=== PATIENT | male | born 1975 | race Caucasian/White ===

== ENCOUNTER 2020-12-16 20:16 | Inpatient (IN) ==
--- NOTE | 2020-12-16 21:31 | DR.FEVERAD ---
HPI Time seen Time Seen by Provider: 12/16/20 20:56 PCP Primary Care Physician: DR.GREG CALLEJAS Complaints/Symptoms Chief Complaint Doctor Comments: 45 y/o male ill over the past week with flu- like symptoms. Here with his brother with similar problems. Having fever, chills, aches, decreased taste, N/V. Cough is minimally productive, clear phlegm. Having dyspnea. + exposed to covid. Did not receive a vaccine. Chief Complaint:: PT HAS HAD COUGH, LOSS OF TASTE, FEVER, BODY ACHES, LOW BACK PAIN, FOR APPROX 1 WEEK Self Treatment fo Chief Complaint: TYLENOL AT APPROX 3:30 COVID-19 Coronavirus risk:travel/contact w/high risk person: Yes Has patient experienced Coronavirus symptoms: Yes Coronavirus symptoms experienced: Fever, Coughing and Shortness of Breath Nurses notes reviewed Nurses Notes Review: Yes Source History Provided: Patient Mode of Arrival Mode of Arrival: Ambulatory Timing Onset of Chief Complaint: 12/09/20 Came on: Gradually Duration Duration: Since Onset Severity Fever Severity/Quality: greater than 102 F Context Symptoms: Fever, Chills, Cough and SOB Modifying factors Modifying factors: Nothing PMH PMH Past Medical History: No Past Surgical History: Yes Surgical History: Appendectomy Family History History of Family Medical Conditions: No Social History Does patient currently use any type of tobacco product: No Have you used tobacco products in the last 12 months: No Type of Tobacco Use: None Does any household member use tobacco: No Do you use any recreational Drugs:: No Lives With: Family Lives Where: Home Infectious screening In the last 2 months have you had wt loss of >10#?: NO Have you had fever, night sweats or hemotysis?: No Have you traveled outside the country in the last 6 months?: No Isolation: Standard ROS Review of Systems Constitutional: Chills, Fever, Malaise, Weakness and Loss of Appetite Eyes: No Symptoms Reported ENTM: No Symptoms Reported Respiratoy: Non-Productive Cough and Short of Breath Cardiovascular: No Symptoms Reported Gastrointestinal/Abdominal: Nausea and Vomiting Genitourinary: No Symptoms Reported Neurological: Weakness Musculoskeletal: Muscle Pain Integumentary: No Symptoms Reported Hematologic/Lymphatic: No Symptoms Reported Endocrine: No Symptoms Reported Psychiatric: No Symptoms Reported All Other Systems: Reviewed and Negative PE Vital Signs Vitals: Temperature 101.2 F Pulse Rate 120 Respiratory Rate 22 Blood Pressure 121/82 O2 Sat by Pulse Oximetry 94 General Limitations: No Limitations General Appearance: Alert and In No Apparent Distress Head Head Exam: Normal Inspection Eyes Eye exam: Normal Appearance ENT ENT Exam: Normal Exam TM/Canal Exam: Bilateral: Normal Nose Exam: Normal Nose Exam Throat Exam: Normal Inspection Neck Neck Exam: Normal Inspection and Full ROM; negative Meningismus Respiratory Respiratory Exam: Normal Lung Sounds Bilat; negative Respiratory Distress Respiratory Exam: Bilateral: Clear to Auscultation Cardiovascular Cardiovascular Exam: Regular Rate, Normal Rhythm and Normal Heart Sounds Abdominal Exam Abdominal Exam: Normal Inspection and Normal Bowel Sounds; negative Tenderness Extremities Extremities Exam: Normal Inspection and Full ROM; negative Edema Back Back Exam: Normal Inspection and Full ROM Neurologic Neurological Exam: Alert, Oriented X3 and CN II-XII Intact; negative Motor Sensory Deficit Psychiatric Psychiatric Exam: Normal Affect Skin Skin Exam: Warm MDM Differential Diagnosis Differential Diagnosis: Influenza, Pneumonia and Viral syndrome (covid infection) COURSE Treatment Treatment: 45 y/o male ill for the past 2 weeks. Clinically with covid, everyone at work has it, here with brother with same symptoms. W/u initiated. CXR with right sided infiltrate, Covid is +. ABG shows pO2 at 62 on RA, 93% sat. Put on O2. Given IV fluids, IV decadron. Will admit for O2 therapy. ROR Labs Reviewed Laboratory Results Reviewed?: Yes Result Diagrams: 12/16/20 22:24 12/16/20 22:24 Laboratory: WBC 6.8 X10^3/uL (3.6-10.0) 12/16/20 22:24 RBC 5.14 X10^6/uL (4.7-6.0) 12/16/20 22:24 Hgb 14.9 g/dL (13.5-18.0) 12/16/20 22:24 Hct 43.0 % (42.0-54.0) 12/16/20 22:24 MCV 83.7 fL (80.0-100.0) 12/16/20 22:24 MCH 29.0 pg (27.0-34.0) 12/16/20 22:24 MCHC 34.6 g/dL (33.0-35.0) 12/16/20 22:24 RDW 14.0 % (11.6-16.5) 12/16/20 22:24 Plt Count 173 X10^3/uL (150.0-450.0) 12/16/20 22:24 MPV 7.9 fL (7.4-11.0) 12/16/20 22:24 Neut % (Auto) 73.7 % (42.0-75.0) 12/16/20 22:24 Lymph % (Auto) 20.6 % (21.0-51.0) L 12/16/20 22:24 Park % (Auto) 5.3 % (0.0-13.0) 12/16/20 22:24 Eos % (Auto) 0.0 % (0.9-2.9) L 12/16/20 22:24 Baso % (Auto) 0.4 % (0.2-1.0) 12/16/20 22:24 Neut # (Auto) 5.0 x10^3/uL (2.2-4.8) H 12/16/20 22:24 Lymph # (Auto) 1.4 X10^3/uL (1.3-2.9) 12/16/20 22:24 Park # (Auto) 0.4 x10^3/uL (0.3-0.8) 12/16/20 22:24 Eos # (Auto) 0.0 x10^3/uL (0.0-0.2) 12/16/20 22:24 Baso # (Auto) 0.0 X10^3/uL (0.0-0.1) 12/16/20 22:24 Absolute Nucleated RBC 0.1 /100WBC 12/16/20 22:24 Sample Site Lra 12/16/20 22:06 ABG pH 7.470 (7.35-7.45) H 12/16/20 22:06 ABG pCO2 32.0 mmHg (35.0-45.0) L 12/16/20 22:06 ABG pO2 62.0 mmHg (80.0-100.0) L 12/16/20 22:06 ABG HCO3 23.3 mmol/L (22-26) 12/16/20 22:06 ABG O2 Saturation 93.0 % (90-100) 12/16/20 22:06 ABG Base Excess 0.2 mmol/L (-2.0-2.0) 12/16/20 22:06 Keith Test Pos 12/16/20 22:06 A-a Gradient 48.0 mmHg 12/16/20 22:06 FiO2 21.0 12/16/20 22:06 Blood Gas Comments [place] [facility] 12/16/20 22:06 Sodium 137 mmol/L (136-145) 12/16/20 22:24 Corrected Sodium 137 mmol/L (136-145) 12/16/20 22:24 Potassium 4.6 mmol/L (3.5-5.1) 12/16/20 22:24 Chloride 101 mmol/L (98-107) 12/16/20 22:24 Carbon Dioxide 25.4 mmol/L (21-32) 12/16/20 22:24 BUN 16 mg/dL (7-18) 12/16/20 22:24 Creatinine 1.32 mg/dL (0.70-1.30) H 12/16/20 22:24 Est GFR (MDRD) Af Amer > 60 (>60) 12/16/20 22:24 Est GFR (MDRD) Non-Af > 60 (>60) 12/16/20 22:24 Glucose 114 mg/dL (65-99) H 12/16/20 22:24 Lactic Acid 1.4 mmol/L (0.4-2.0) 12/16/20 22:24 Calcium 8.1 mg/dL (8.5-10.1) L 12/16/20 22:24 Corrected Calcium TNP 12/16/20 22:24 Total Bilirubin 0.40 mg/dL (0.2-1.0) 12/16/20 22:24 AST 48 Units/L (15-37) H 12/16/20 22:24 ALT 64 Units/L (12-78) 12/16/20 22:24 Alkaline Phosphatase 53 Units/L (46-116) 12/16/20 22:24 Total Protein 7.9 g/dL (6.4-8.2) 12/16/20 22:24 Albumin 3.9 g/dL (3.4-5.0) 12/16/20 22:24 Globulin 4.0 g/dL (2.5-4.5) 12/16/20 22:24 Albumin/Globulin Ratio 1.0 Ratio (1.1-2.1) L 12/16/20 22:24 SARS-CoV-2 (PCR) Positive (NEGATIVE) A 12/16/20 21:12 Influenza Type A (PCR) Negative (NEGATIVE) 12/16/20 21:12 Influenza Type B (PCR) Negative (NEGATIVE) 12/16/20 21:12 RSV (PCR) Negative (NEGATIVE) 12/16/20 21:12 XRAY XRAY Interpreted by: Radiologist X-ray Results: + right sided infiltrate Opioid Opioid Risk Tool Total: 0 Total Score Risk Category: Low Risk Copyright: [facility] predicting aberrant behaviors Diagnosis Discharge Problem: Pneumonia due to COVID-19 virus, Hypoxia ADDITIONAL NOTES Additional Notes Additional Notes: Discussed the pt with Dr. Ruff, accepts observation admission.
[2020-12-16] MEDS ORDERED: NS 1000 ML 1,000 ML IV ONE (21:51)
[2020-12-16] MEDS ORDERED: DECADRON INJ IVP ONE (21:53)
[2020-12-16] MEDS ORDERED: MOTRIN TAB 800 MG PO ONE ×2 (21:54→21:58)
[2020-12-16] MEDS ORDERED: DECADRON INJ ONE (21:58)
[2020-12-16] MEDS ORDERED: NS 1000 ML 1,000 ML ONE (21:58)
[2020-12-16 22:08] LABS: ABG ALLEN TEST POS; ABG BASE EXCESS 0.2 mmol/L (-2.0-2.0); ABG HCO3 23.3 mmol/L (22-26)
[2020-12-16 22:38] LABS: BASOPHILS % (AUTO) 0.4 % (0.2-1.0); HEMOGLOBIN 14.9 g/dL (13.5-18.0); LYMPHOCYTES # (AUTO) 1.4 X10^3/uL (1.3-2.9); LYMPHOCYTES % (AUTO) 20.6 % (21.0-51.0); MEAN CORPUSCULAR HGB CONC 34.6 g/dL (33.0-35.0); MEAN CORPUSCULAR VOLUME 83.7 fL (80.0-100.0); MEAN PLATELET VOLUME 7.9 fL (7.4-11.0); MONOCYTES # (AUTO) 0.4 x10^3/uL (0.3-0.8); MONOCYTES % (AUTO) 5.3 % (0.0-13.0); NEUTROPHILS % (AUTO) 73.7 % (42.0-75.0); PLATELET COUNT 173 X10^3/uL (150.0-450.0); RED BLOOD COUNT 5.14 X10^6/uL (4.7-6.0); WHITE BLOOD COUNT 6.8 X10^3/uL (3.6-10.0)
[2020-12-16 22:49] LABS: ALANINE AMINOTRANSFERASE 64 Units/L (12-78); ALBUMIN 3.9 g/dL (3.4-5.0); ALKALINE PHOSPHATASE 53 Units/L (46-116); ASPARTATE AMINO TRANSFERASE 48 Units/L (15-37); BLOOD UREA NITROGEN 16 mg/dL (7-18); CALCIUM 8.1 mg/dL (8.5-10.1); CARBON DIOXIDE 25.4 mmol/L (21-32); CHLORIDE 101 mmol/L (98-107); COR NA(FOR HYPERGLY) 137 mmol/L (136-145); CREATININE 1.32 mg/dL (0.70-1.30); SODIUM 137 mmol/L (136-145); TOTAL PROTEIN 7.9 g/dL (6.4-8.2); eGFR NON BLACK RACES > 60 (>60)
[2020-12-16 22:50] LABS: LACTIC ACID 1.4 mmol/L (0.4-2.0)
--- NOTE | 2020-12-16 23:18 | RAD ---
HISTORYPT C/O FEVER, BODY ACHES, DYSPNEA X 11 DAYSSTUDYCHEST, 1 VIEWCOMPARISONNone availableTECHNIQUEChest radiographic imaging, AP portable projection, 1 imageFINDINGSNo cardiomegaly.Patchy airspace disease in the right upper lobe and in the right lower lobe.No pleural effusion.No pneumothorax.No acute osseous abnormality.IMPRESSIONPatchy airspace disease in the right upper lobe and in the right lower lobe. Findings could represent developing pneumonia or the sequela of an atypical/viral infectious process.Electronically signed by: Emiliano Mcgovern (Dec 16, 2020 23:16:00)
[2020-12-17] MEDS ORDERED: REMDESIVIR 200 MG in NS 250 ML IV 250 ML IV ONE (09:01)
[2020-12-17] MEDS ORDERED: DUONEB 0.5 MG/3 MG (3 mL) NEB ONE ×3 (09:52→15:32)
[2020-12-17] MEDS ORDERED: REMDESIVIR IV ONE (10:00)
[2020-12-17] MEDS ORDERED: PROTONIX INJ 40 MG VIAL ONE (10:00)
[2020-12-17] MEDS ORDERED: SOLU-Medrol 40 MG VIAL ONE ×3 (10:00→19:26)
[2020-12-17] MEDS ORDERED: LOVENOX INJ 40 MG SYR SC ONE (10:00)
[2020-12-17] MEDS ORDERED: NS 1/2 1000 ML IV 1,000 ML IV ONE (10:01)
[2020-12-17] MEDS ORDERED: NS 250 ML IV 250 ML IV ONE ×2 (10:01→11:11)
[2020-12-17] MEDS ORDERED: ROBITUSSIN DM ONE ×4 (10:01→19:27)
[2020-12-17] MEDS: DUONEB 0.5 MG/3 MG (3 mL) NEB SCH ×4 (10:02→20:41)
[2020-12-17] MEDS: LOVENOX INJ 40 MG SYR SC SCH (10:20)
[2020-12-17] MEDS: PROTONIX INJ 40 MG VIAL IVP SCH (10:21)
[2020-12-17] MEDS: NS 1/2 1000 ML IV 1,000 ML IV SCH (10:21)
[2020-12-17] MEDS: ROBITUSSIN DM PO SCH ×4 (10:21→20:44)
[2020-12-17] MEDS ORDERED: ZITHROMAX INJ 500 MG VIAL IV ONE (11:11)
[2020-12-17] MEDS ORDERED: TYLENOL 500 MG TAB EXTRA STRENGTH PO ONE (11:47)
[2020-12-17] MEDS: ZITHROMAX INJ 500 MG VIAL 500 MG in NS 250 ML IV 250 ML IV SCH (11:54)
[2020-12-17] MEDS: TYLENOL 500 MG TAB EXTRA STRENGTH PO PRN (11:55)
[2020-12-17] MEDS ORDERED: NS 100 ML IV + SPIKE MINIBAG* 100 ML IV ONE ×2 (13:22→19:27)
[2020-12-17] MEDS ORDERED: ZOSYN VIAL 3.375 GRAMS IV ONE ×2 (13:22→19:26)
[2020-12-17] MEDS: ZOSYN VIAL 3.375 GRAMS 3.375 G in NS 100 ML IV + SPIKE MINIBAG* 100 ML IV SCH ×3 (13:22→21:15)
[2020-12-17] MEDS ORDERED: SOLU-Medrol 125 MG VIAL IVP SCH (14:00)
[2020-12-17] MEDS: SOLU-Medrol 40 MG VIAL IVP SCH ×2 (14:12→21:15)
--- NOTE | 2020-12-17 18:53 | DR.H&P ---
H&P - History & Physical for Day of: H&P Date: 12/17/20 - Chief Complaint Chief Complaint: FEVER, CCC, SOB COVID 19 - History of Present Illness History of Present Illness: PT IS 45 WM ER ADMISSION WITH CO ill over the past week with flu-like symptoms. Here with his brother with similar problems. Having fever, chills, aches, decreased taste, N/V. Cough is minimally productive, clear phlegm. Having dyspnea. + exposed to covid. Did not receive a vaccine. - Past Medical History Past Medical History: denies: Coronary Artery Disease, Diabetes, Hypertension, Renal Disease - Past Surgical History Surgical History: Appendectomy - Social History Does patient currently use any type of tobacco product: No Have you used tobacco products in the last 12 months: No Type of Tobacco Use: None Does any household member use tobacco: No Alcohol Use: None Drug Use: None - Medications Home Medications: No Known Drug Allergies Allergy (Verified 12/16/20 22:29) CONTINUE taking the following medications NK 12/17/20 [History] - Review of Systems Constitutional: Fever, Chills, Sweats Eyes: No Symptoms Reported ENT: No Symptoms Reported Respiratory: Cough, Shortness of Breath, SOB with Excertion, Sputum, Wheezing Cardiovascular: No Symptoms Reported Gastrointestinal: Nausea, Diarrhea Genitourinary: No Symptoms Reported Musculoskeletal: No Symptoms Reported Skin: No Symptoms Reported Neurological: No Symptoms Reported - Physical Exam Vital Signs: Temperature 98.1 F Pulse Rate [Right Brachial] 106 Pulse Rate [Right] 74 Pulse Rate 92 Respiratory Rate 22 Blood Pressure [Left Arm] 122/62 Blood Pressure 121/82 O2 Sat by Pulse Oximetry 94 Oriented: Normal Eyes: Normal Ear: Normal Nose: Normal Respiratory: Rhonchi Throughout Cardiovascular: Normal : Normal Auscultation: Bowel Sounds: Normal, Absent Tenderness: Normal Skin: Normal Musculoskeletal: Normal Psychiatric: Anxiety Affect: Anxious Speech Pattern: Clear, Appropriate - Assessment/Plan (1) Pneumonia due to COVID-19 virus Status: Acute Plan: ADMIT COVID ISOLATION. IV REMDESIVIR. IV HYDRATION, SUPPELMENTAL O2, IV SOLU MEDROL. ZITHROMAX AND ZOSYN. AM LABS, REPEAT ABG, LOVENOX/ DVT PREVENTION (2) Hypoxia Status: Acute - Allergies Allergies/Adverse Reactions: Allergies Allergy/AdvReac Type Severity Reaction Status Date / Time No Known Drug Allergies Allergy Verified 12/16/20 22:29
[2020-12-17] MEDS ORDERED: MOTRIN TAB 800 MG PO ONE (21:54)
[2020-12-18] MEDS ORDERED: TYLENOL 500 MG TAB EXTRA STRENGTH PO ONE ×2 (00:11→12:52)
[2020-12-18] MEDS: TYLENOL 500 MG TAB EXTRA STRENGTH PO PRN ×3 (00:22→20:52)
[2020-12-18] MEDS: DUONEB 0.5 MG/3 MG (3 mL) NEB SCH ×6 (01:41→20:00)
[2020-12-18] MEDS ORDERED: NS 1/2 1000 ML IV 1,000 ML IV ONE ×2 (02:20→23:47)
[2020-12-18] MEDS ORDERED: NS 100 ML IV + SPIKE MINIBAG* 100 ML IV ONE ×2 (04:49→12:34)
[2020-12-18] MEDS ORDERED: ZOSYN VIAL 3.375 GRAMS IV ONE ×2 (04:49→12:33)
[2020-12-18] MEDS: SOLU-Medrol 40 MG VIAL IVP SCH ×3 (05:44→21:00)
[2020-12-18] MEDS: ZOSYN VIAL 3.375 GRAMS 3.375 G in NS 100 ML IV + SPIKE MINIBAG* 100 ML IV SCH ×3 (05:44→21:00)
[2020-12-18] MEDS: NS 1/2 1000 ML IV 1,000 ML IV SCH ×3 (05:44→23:53)
[2020-12-18 06:07] LABS: BASOPHILS % (AUTO) 0.2 % (0.2-1.0); EOSINOPHILS % (AUTO) 0.1 % (0.9-2.9); HEMATOCRIT 39.5 % (42.0-54.0); HEMOGLOBIN 13.3 g/dL (13.5-18.0); LYMPHOCYTES # (AUTO) 1.7 X10^3/uL (1.3-2.9); LYMPHOCYTES % (AUTO) 12.1 % (21.0-51.0); MEAN CORPUSCULAR HEMOGLOBIN 28.5 pg (27.0-34.0); MEAN CORPUSCULAR HGB CONC 33.8 g/dL (33.0-35.0); MEAN CORPUSCULAR VOLUME 84.4 fL (80.0-100.0); MEAN PLATELET VOLUME 7.6 fL (7.4-11.0); MONOCYTES # (AUTO) 0.4 x10^3/uL (0.3-0.8); MONOCYTES % (AUTO) 3.1 % (0.0-13.0); NEUTROPHILS # (AUTO) 11.9 x10^3/uL (2.2-4.8); NEUTROPHILS % (AUTO) 84.5 % (42.0-75.0); PLATELET COUNT 241 X10^3/uL (150.0-450.0); RED BLOOD COUNT 4.68 X10^6/uL (4.7-6.0); RED CELL DISTRIBUTION WIDTH 13.8 % (11.6-16.5)
[2020-12-18 06:23] LABS: ABG ALLEN TEST POS; ABG BASE EXCESS -0.1 mmol/L (-2.0-2.0); ABG HCO3 23.9 mmol/L (22-26)
[2020-12-18 06:47] LABS: ALANINE AMINOTRANSFERASE 53 Units/L (12-78); ALBUMIN 3.4 g/dL (3.4-5.0); ALKALINE PHOSPHATASE 44 Units/L (46-116); ASPARTATE AMINO TRANSFERASE 42 Units/L (15-37); BLOOD UREA NITROGEN 14 mg/dL (7-18); CARBON DIOXIDE 26.8 mmol/L (21-32); CHLORIDE 105 mmol/L (98-107); COR NA(FOR HYPERGLY) 143 mmol/L (136-145); CREATININE 1.09 mg/dL (0.70-1.30); SODIUM 141 mmol/L (136-145); TOTAL PROTEIN 7.1 g/dL (6.4-8.2); eGFR NON BLACK RACES > 60 (>60)
[2020-12-18] MEDS ORDERED: LOVENOX INJ 40 MG SYR SC ONE (07:30)
[2020-12-18] MEDS ORDERED: PROTONIX INJ 40 MG VIAL ONE (07:31)
[2020-12-18] MEDS ORDERED: ROBITUSSIN DM ONE ×2 (07:31→12:34)
[2020-12-18] MEDS ORDERED: NS 250 ML IV 500 ML IV ONE (07:31)
[2020-12-18] MEDS ORDERED: REMDESIVIR IV ONE (07:31)
[2020-12-18] MEDS ORDERED: ZITHROMAX INJ 500 MG VIAL IV ONE (07:31)
[2020-12-18] MEDS ORDERED: DUONEB 0.5 MG/3 MG (3 mL) NEB ONE ×3 (08:03→16:12)
[2020-12-18] MEDS: LOVENOX INJ 40 MG SYR SC SCH (08:25)
[2020-12-18] MEDS: ZITHROMAX INJ 500 MG VIAL 500 MG in NS 250 ML IV 250 ML IV SCH (08:25)
[2020-12-18] MEDS: REMDESIVIR 100 MG in NS 250 ML IV 250 ML IV SCH (08:26)
[2020-12-18] MEDS: PROTONIX INJ 40 MG VIAL IVP SCH (08:26)
[2020-12-18] MEDS: ROBITUSSIN DM PO SCH ×4 (08:26→20:56)
--- NOTE | 2020-12-18 09:50 | RAD ---
HISTORYCOVID PNEUMONIA FOLLOW UPSTUDYCHEST x-ray, 1 VIEWCOMPARISONX-ray 12/16/2020FINDINGSRounded bilateral lung infiltrates are probably due to COVID-19 pneumonia. Continued x-ray follow up to document resolution is recommended. No pneumothorax or pleural effusion. Heart is normal size.IMPRESSIONLikely moderate bilateral COVID-19 pneumonia is similar to prior study. Continued x-ray follow up to document resolution is recommended.Electronically signed by: Andrzej Joseph (Dec 18, 2020 09:48:23)
[2020-12-18] MEDS ORDERED: ZOFRAN INJ 4 MG VIAL IVP PRN (10:19)
[2020-12-18] MEDS ORDERED: ZOFRAN INJ 4 MG VIAL ONE (10:34)
[2020-12-18] MEDS ORDERED: SOLU-Medrol 125 MG VIAL ONE (12:33)
[2020-12-18 13:49] LABS: ABG BASE EXCESS 0.1 mmol/L (-2.0-2.0); ABG HCO3 23.6 mmol/L (22-26)
[2020-12-18 13:50] LABS: ABG ALLEN TEST POS
[2020-12-19] MEDS: DUONEB 0.5 MG/3 MG (3 mL) NEB SCH ×6 (00:31→21:40)
[2020-12-19] MEDS: SOLU-Medrol 40 MG VIAL IVP SCH ×3 (05:33→21:00)
[2020-12-19] MEDS: ZOSYN VIAL 3.375 GRAMS 3.375 G in NS 100 ML IV + SPIKE MINIBAG* 100 ML IV SCH ×3 (05:34→21:00)
--- NOTE | 2020-12-19 07:14 | RAD ---
HISTORYCOVID+STUDYCHEST, 1 [id number]/27/2021.TECHNIQUEAP view of the chestFINDINGSCardiac and mediastinal contours are within normal limits. Similar appearance of multifocal bilateral airspace opacities. No definite pleural effusion or pneumothorax. Soft tissue attenuation limits evaluation.IMPRESSIONNo significant change in COVID 19 pneumonia.Electronically signed by: Ronald Hernandez (Dec 19, 2020 07:12:03)
[2020-12-19 07:53] LABS: BASOPHILS # (AUTO) 0.2 X10^3/uL (0.0-0.1); BASOPHILS % (AUTO) 1.1 % (0.2-1.0); EOSINOPHILS % (AUTO) 0.1 % (0.9-2.9); HEMATOCRIT 36.7 % (42.0-54.0); HEMOGLOBIN 12.3 g/dL (13.5-18.0); LYMPHOCYTES % (AUTO) 6.4 % (21.0-51.0); MEAN CORPUSCULAR HEMOGLOBIN 27.9 pg (27.0-34.0); MEAN CORPUSCULAR HGB CONC 33.5 g/dL (33.0-35.0); MEAN CORPUSCULAR VOLUME 83.3 fL (80.0-100.0); MEAN PLATELET VOLUME 7.6 fL (7.4-11.0); MONOCYTES # (AUTO) 0.4 x10^3/uL (0.3-0.8); MONOCYTES % (AUTO) 2.8 % (0.0-13.0); NEUTROPHILS # (AUTO) 13.6 x10^3/uL (2.2-4.8); NEUTROPHILS % (AUTO) 89.6 % (42.0-75.0); PLATELET COUNT 298 X10^3/uL (150.0-450.0); RED CELL DISTRIBUTION WIDTH 14.5 % (11.6-16.5); WHITE BLOOD COUNT 15.2 X10^3/uL (3.6-10.0)
[2020-12-19 08:15] LABS: ALANINE AMINOTRANSFERASE 64 Units/L (12-78); ALKALINE PHOSPHATASE 41 Units/L (46-116); ASPARTATE AMINO TRANSFERASE 65 Units/L (15-37); BLOOD UREA NITROGEN 15 mg/dL (7-18); CALCIUM 7.8 mg/dL (8.5-10.1); CARBON DIOXIDE 25.4 mmol/L (21-32); CHLORIDE 104 mmol/L (98-107); COR CA(FOR HYPOALB) 8.6 mg/dL (8.5-10.1); COR NA(FOR HYPERGLY) 142 mmol/L (136-145); CREATININE 1.14 mg/dL (0.70-1.30); SODIUM 140 mmol/L (136-145); TOTAL PROTEIN 6.3 g/dL (6.4-8.2); eGFR NON BLACK RACES > 60 (>60)
[2020-12-19] MEDS: ROBITUSSIN DM PO SCH ×4 (08:19→21:00)
[2020-12-19] MEDS: PROTONIX INJ 40 MG VIAL IVP SCH (08:19)
[2020-12-19] MEDS: LOVENOX INJ 40 MG SYR SC SCH (08:20)
[2020-12-19 08:39] LABS: BAND NEUTROPHILS % 4 % (0-10); PLATELET MORPHOLOGY COMMENT NORMAL (NORMAL)
[2020-12-19] MEDS ORDERED: TUSSIONEX PENNKINETIC SUSP PO PRN (08:48)
[2020-12-19] MEDS ORDERED: MUCOMYST (RESPIRATORY USE ONLY) ONE (08:59)
[2020-12-19] MEDS: REMDESIVIR 100 MG in NS 250 ML IV 250 ML IV SCH (09:13)
[2020-12-19 09:17] LABS: ABG ALLEN TEST POS; ABG BASE EXCESS 1.5 mmol/L (-2.0-2.0); ABG HCO3 24.6 mmol/L (22-26)
[2020-12-19] MEDS: MUCOMYST (RESPIRATORY USE ONLY) NEB SCH ×2 (09:20→21:40)
[2020-12-19] MEDS: ZITHROMAX INJ 500 MG VIAL 500 MG in NS 250 ML IV 250 ML IV SCH (10:27)
[2020-12-19] MEDS ORDERED: NS 1/2 1000 ML IV 1,000 ML IV ONE (13:29)
[2020-12-19] MEDS: NS 1/2 1000 ML IV 1,000 ML IV SCH (13:35)
[2020-12-19] MEDS ORDERED: PULMICORT NEB TX 0.5 MG NEB ONE (19:53)
[2020-12-19] MEDS: PULMICORT NEB TX 0.5 MG NEB SCH (21:40)
[2020-12-20] MEDS: DUONEB 0.5 MG/3 MG (3 mL) NEB SCH ×6 (00:30→21:05)
[2020-12-20] MEDS: NS 1/2 1000 ML IV 1,000 ML IV SCH ×2 (02:01→17:46)
[2020-12-20 05:02] LABS: BASOPHILS % (AUTO) 0.1 % (0.2-1.0); HEMATOCRIT 36.3 % (42.0-54.0); HEMOGLOBIN 12.3 g/dL (13.5-18.0); LYMPHOCYTES # (AUTO) 1.4 X10^3/uL (1.3-2.9); LYMPHOCYTES % (AUTO) 10.1 % (21.0-51.0); MEAN CORPUSCULAR HEMOGLOBIN 28.1 pg (27.0-34.0); MEAN CORPUSCULAR HGB CONC 33.8 g/dL (33.0-35.0); MEAN PLATELET VOLUME 7.6 fL (7.4-11.0); MONOCYTES # (AUTO) 0.5 x10^3/uL (0.3-0.8); MONOCYTES % (AUTO) 3.5 % (0.0-13.0); NEUTROPHILS # (AUTO) 11.7 x10^3/uL (2.2-4.8); NEUTROPHILS % (AUTO) 86.3 % (42.0-75.0); PLATELET COUNT 317 X10^3/uL (150.0-450.0); RED BLOOD COUNT 4.38 X10^6/uL (4.7-6.0); RED CELL DISTRIBUTION WIDTH 14.4 % (11.6-16.5); WHITE BLOOD COUNT 13.6 X10^3/uL (3.6-10.0)
[2020-12-20 05:10] LABS: ABG BASE EXCESS 2.8 mmol/L (-2.0-2.0); ABG HCO3 25.9 mmol/L (22-26)
[2020-12-20 05:12] LABS: ABG ALLEN TEST POS
[2020-12-20 05:18] LABS: BLOOD UREA NITROGEN 15 mg/dL (7-18); CALCIUM 7.9 mg/dL (8.5-10.1); CARBON DIOXIDE 23.2 mmol/L (21-32); CHLORIDE 105 mmol/L (98-107); COR NA(FOR HYPERGLY) 142 mmol/L (136-145); CREATININE 0.93 mg/dL (0.70-1.30); SODIUM 140 mmol/L (136-145); eGFR NON BLACK RACES > 60 (>60)
[2020-12-20] MEDS: SOLU-Medrol 40 MG VIAL IVP SCH ×4 (05:49→20:46)
[2020-12-20] MEDS: ZOSYN VIAL 3.375 GRAMS 3.375 G in NS 100 ML IV + SPIKE MINIBAG* 100 ML IV SCH ×3 (05:50→21:00)
--- NOTE | 2020-12-20 06:05 | RAD ---
HISTORYPNEUMONIASTUDYCHEST, 1 [id number]/28/2021FINDINGSThe trachea is midline. The cardiac silhouette is unremarkable. Bilateral multifocal airspace opacities unchanged. No pleural effusion or pneumothorax.. The bony thorax is unremarkable.IMPRESSIONBilateral multifocal pneumonic infiltrates unchanged from 12/19/2020lectronically signed by: Jesus Diego (Dec 20, 2020 06:04:09)
[2020-12-20] MEDS ORDERED: LASIX IVP ONE (08:50)
[2020-12-20] MEDS: MUCOMYST (RESPIRATORY USE ONLY) NEB SCH ×2 (09:24→21:05)
[2020-12-20] MEDS: PULMICORT NEB TX 0.5 MG NEB SCH ×2 (09:24→21:05)
[2020-12-20 09:40] LABS: CREATINE KINASE 703 Units/L (39-308); CREATINE KINASE MB 1.7 ng/mL (0-4.0); TROPONIN I < 0.02 ng/mL (0-1.5)
[2020-12-20 09:44] LABS: CKMB % 0.2 % (<4)
[2020-12-20] MEDS: K-DUR TAB 20 MEQ PO SCH (10:01)
[2020-12-20] MEDS: ROBITUSSIN DM PO SCH ×4 (10:02→20:47)
[2020-12-20] MEDS: PROTONIX INJ 40 MG VIAL IVP SCH (10:02)
[2020-12-20] MEDS: REMDESIVIR 100 MG in NS 250 ML IV 250 ML IV SCH (10:03)
[2020-12-20] MEDS: LOVENOX INJ 40 MG SYR SC SCH (10:03)
[2020-12-20] MEDS: ZITHROMAX INJ 500 MG VIAL 500 MG in NS 250 ML IV 250 ML IV SCH (10:03)
[2020-12-20] MEDS ORDERED: NS 100 ML IV 100 ML ONE (10:06)
[2020-12-20 11:19] LABS: ALANINE AMINOTRANSFERASE 91 Units/L (12-78); ALBUMIN 2.8 g/dL (3.4-5.0); ALKALINE PHOSPHATASE 45 Units/L (46-116); ASPARTATE AMINO TRANSFERASE 83 Units/L (15-37); COR CA(FOR HYPOALB) 8.9 mg/dL (8.5-10.1); TOTAL PROTEIN 6.4 g/dL (6.4-8.2)
--- NOTE | 2020-12-20 11:57 | CT ---
CT angiogram chest with contrastIndication: Dyspnea. Elevated D-dimer.TECHNIQUEHelical images through the chest after IV contrast. Coronal and sagittal reformats provided. MIP images provided.FINDINGSLimited images through the upper abdomen demonstrate hepatic steatosis review of bone windows demonstrate no destructive osseous lesion.Chest: Aortic arch and branch vessels are patent. Pulmonary artery bolus timing is slightly suboptimal without large central or proximal segmental pulmonary artery filling defect identified. Shotty mediastinal lymph nodes and hilar lymph nodes are noted. There is no pneumothorax or effusion. Fairly dense bilateral mostly ground-glass opacities are seen scattered throughout the lung parenchyma, somewhat peripheral overall, compatible with COVID-19 viral pneumonitis.IMPRESSION1. Pulmonary changes of [place] 19 viral pneumonitis favored. Other infectious or inflammatory etiologies not excluded2. No pulmonary embolus seen centrally or in the segmental vessels proximally.3. Adenopathy, presumably reactive. Attention at follow-up recommended.4. Hepatic steatosisElectronically signed by: PEPE WARNER (Dec 20, 2020 11:55:01)
[2020-12-20] MEDS ORDERED: NS 1/2 1000 ML IV 1,000 ML IV ONE (15:20)
[2020-12-20] MEDS: LASIX IVP SCH (18:05)
[2020-12-20] MEDS ORDERED: VISTARIL PO PRN (19:03)
[2020-12-20] MEDS: LOVENOX INJ 30 MG SYR SC SCH (20:48)
[2020-12-20 21:34] LABS: MAGNESIUM 2.6 mg/dL (1.7-2.9)
[2020-12-21] MEDS: DUONEB 0.5 MG/3 MG (3 mL) NEB SCH ×5 (00:55→17:37)
[2020-12-21] MEDS: SOLU-Medrol 40 MG VIAL IVP SCH ×3 (03:25→14:25)
[2020-12-21] MEDS: NS 1/2 1000 ML IV 1,000 ML IV SCH ×2 (04:15→15:43)
[2020-12-21] MEDS: ZOSYN VIAL 3.375 GRAMS 3.375 G in NS 100 ML IV + SPIKE MINIBAG* 100 ML IV SCH ×3 (05:00→21:28)
[2020-12-21 05:35] LABS: ALANINE AMINOTRANSFERASE 126 Units/L (12-78); ALKALINE PHOSPHATASE 47 Units/L (46-116); ASPARTATE AMINO TRANSFERASE 92 Units/L (15-37); BLOOD UREA NITROGEN 22 mg/dL (7-18); CALCIUM 8.1 mg/dL (8.5-10.1); CARBON DIOXIDE 29.6 mmol/L (21-32); CHLORIDE 105 mmol/L (98-107); COR CA(FOR HYPOALB) 8.9 mg/dL (8.5-10.1); COR NA(FOR HYPERGLY) 146 mmol/L (136-145); CREATININE 1.03 mg/dL (0.70-1.30); SODIUM 144 mmol/L (136-145); TOTAL PROTEIN 6.5 g/dL (6.4-8.2); eGFR NON BLACK RACES > 60 (>60)
[2020-12-21 05:39] LABS: BASOPHILS % (AUTO) 0.1 % (0.2-1.0); HEMOGLOBIN 12.9 g/dL (13.5-18.0); LYMPHOCYTES # (AUTO) 1.1 X10^3/uL (1.3-2.9); LYMPHOCYTES % (AUTO) 7.9 % (21.0-51.0); MEAN CORPUSCULAR HEMOGLOBIN 28.4 pg (27.0-34.0); MEAN CORPUSCULAR HGB CONC 33.9 g/dL (33.0-35.0); MEAN CORPUSCULAR VOLUME 83.8 fL (80.0-100.0); MEAN PLATELET VOLUME 7.6 fL (7.4-11.0); MONOCYTES # (AUTO) 0.5 x10^3/uL (0.3-0.8); MONOCYTES % (AUTO) 3.6 % (0.0-13.0); NEUTROPHILS # (AUTO) 12.8 x10^3/uL (2.2-4.8); NEUTROPHILS % (AUTO) 88.4 % (42.0-75.0); PLATELET COUNT 360 X10^3/uL (150.0-450.0); RED BLOOD COUNT 4.53 X10^6/uL (4.7-6.0); RED CELL DISTRIBUTION WIDTH 14.4 % (11.6-16.5); WHITE BLOOD COUNT 14.5 X10^3/uL (3.6-10.0)
--- NOTE | 2020-12-21 05:54 | RAD ---
HISTORYCOVID, PNEUMONIASTUDYCHEST, 1 [id number]/29/2021FINDINGSThe trachea is midline. The cardiac silhouette is unremarkable. Bilateral multifocal airspace opacities unchanged. No pneumothorax.. The bony thorax is unremarkable.IMPRESSIONBilateral multifocal pneumonic infiltrates; no significant change from 12/20/2020lectronically signed by: Jesus Diego (Dec 21, 2020 05:52:52)
[2020-12-21 06:57] LABS: ABG BASE EXCESS 8.7 mmol/L (-2.0-2.0)
[2020-12-21 06:58] LABS: ABG ALLEN TEST POS; ABG HCO3 31.5 mmol/L (22-26)
[2020-12-21] MEDS: K-DUR TAB 20 MEQ PO SCH ×2 (08:50→21:34)
[2020-12-21] MEDS: PROTONIX INJ 40 MG VIAL IVP SCH (08:50)
[2020-12-21] MEDS: LOVENOX INJ 30 MG SYR SC SCH (08:50)
[2020-12-21] MEDS: LASIX IVP SCH (08:50)
[2020-12-21] MEDS: ROBITUSSIN DM PO SCH ×4 (08:51→21:30)
[2020-12-21] MEDS: ZITHROMAX INJ 500 MG VIAL 500 MG in NS 250 ML IV 250 ML IV SCH (08:51)
[2020-12-21] MEDS: REMDESIVIR 100 MG in NS 250 ML IV 250 ML IV SCH (08:51)
[2020-12-21] MEDS: MUCOMYST (RESPIRATORY USE ONLY) NEB SCH ×2 (09:52→23:17)
[2020-12-21] MEDS: PULMICORT NEB TX 0.5 MG NEB SCH ×3 (09:52→21:30)
[2020-12-21] MEDS ORDERED: IVERMECTIN PO ONE ×2 (14:18→19:39)
[2020-12-21] MEDS ORDERED: NS 1/2 1000 ML IV 1,000 ML IV ONE (15:42)
[2020-12-21] MEDS ORDERED: PHARMACY CONSULT - IVERMECTIN XX SCH (20:00)
[2020-12-21] MEDS: NS 1000 ML 1,000 ML IV SCH (21:19)
[2020-12-21] MEDS: BROVANA IN SCH (21:20)
[2020-12-21] MEDS: VITAMIN A PO SCH (21:26)
[2020-12-21] MEDS: ASCORBIC ACID INJ MULTI-DOSE VIAL 1,500 MG in NS 100 ML IV 100 ML IV SCH ×2 (21:27→23:58)
[2020-12-21] MEDS: LOVENOX INJ 60 MG SYR SC SCH (21:30)
[2020-12-21] MEDS: PEPCID TAB 40 MG PO SCH (21:36)
[2020-12-21] MEDS: MELATONIN PO SCH (21:36)
[2020-12-21] MEDS: VITAMIN D (1.25MG) PO SCH (21:36)
[2020-12-21] MEDS: ZINC SULFATE PO SCH (21:36)
[2020-12-21] MEDS: THIAMINE HCL INJ IVP SCH (21:38)
[2020-12-21] MEDS: SOLU-Medrol 125 MG VIAL IVP SCH (21:39)
[2020-12-22] MEDS: SOLU-Medrol 125 MG VIAL IVP SCH ×4 (02:55→21:03)
[2020-12-22] MEDS: ASCORBIC ACID INJ MULTI-DOSE VIAL 1,500 MG in NS 100 ML IV 100 ML IV SCH ×4 (02:55→21:04)
[2020-12-22] MEDS: ZOSYN VIAL 3.375 GRAMS 3.375 G in NS 100 ML IV + SPIKE MINIBAG* 100 ML IV SCH ×3 (05:04→21:05)
[2020-12-22 05:08] LABS: ABG BASE EXCESS 6.1 mmol/L (-2.0-2.0); ABG HCO3 29.6 mmol/L (22-26)
[2020-12-22 05:09] LABS: ABG ALLEN TEST POS
[2020-12-22 05:20] LABS: BASOPHILS % (AUTO) 0.2 % (0.2-1.0); EOSINOPHILS % (AUTO) 0.1 % (0.9-2.9); HEMATOCRIT 36.3 % (42.0-54.0); HEMOGLOBIN 12.4 g/dL (13.5-18.0); LYMPHOCYTES # (AUTO) 1.2 X10^3/uL (1.3-2.9); LYMPHOCYTES % (AUTO) 8.7 % (21.0-51.0); MEAN CORPUSCULAR HEMOGLOBIN 28.5 pg (27.0-34.0); MEAN CORPUSCULAR VOLUME 83.6 fL (80.0-100.0); MEAN PLATELET VOLUME 7.5 fL (7.4-11.0); MONOCYTES # (AUTO) 0.4 x10^3/uL (0.3-0.8); MONOCYTES % (AUTO) 2.8 % (0.0-13.0); NEUTROPHILS # (AUTO) 12.3 x10^3/uL (2.2-4.8); NEUTROPHILS % (AUTO) 88.2 % (42.0-75.0); PLATELET COUNT 395 X10^3/uL (150.0-450.0); RED BLOOD COUNT 4.34 X10^6/uL (4.7-6.0); RED CELL DISTRIBUTION WIDTH 14.2 % (11.6-16.5)
[2020-12-22 05:34] LABS: ALANINE AMINOTRANSFERASE 230 Units/L (12-78); ALBUMIN 2.7 g/dL (3.4-5.0); ALKALINE PHOSPHATASE 51 Units/L (46-116); ASPARTATE AMINO TRANSFERASE 118 Units/L (15-37); BLOOD UREA NITROGEN 22 mg/dL (7-18); CALCIUM 7.9 mg/dL (8.5-10.1); CARBON DIOXIDE 27.8 mmol/L (21-32); CHLORIDE 108 mmol/L (98-107); COR CA(FOR HYPOALB) 8.9 mg/dL (8.5-10.1); COR NA(FOR HYPERGLY) 145 mmol/L (136-145); CREATININE 0.95 mg/dL (0.70-1.30); SODIUM 143 mmol/L (136-145); eGFR NON BLACK RACES > 60 (>60)
[2020-12-22] MEDS: PULMICORT NEB TX 0.5 MG NEB SCH ×3 (08:55→21:25)
[2020-12-22] MEDS: BROVANA IN SCH ×2 (08:55→21:15)
--- NOTE | 2020-12-22 09:29 | RAD ---
HISTORYPNEUMONIASTUDYCHEST, 1 [id number]/30/2021FINDINGSBorderline height size.. Increased multifocal pulmonary opacities. No sizable effusion or visible pneumothorax. No acute osseous finding.IMPRESSIONWorsening pulmonary opa cities. Borderline heart size.Electronically signed by: Jacinto Abebe (Dec 22, 2020 09:27:33)
[2020-12-22] MEDS: FLUVOXAMINE 50 MG PO SCH ×2 (09:36)
[2020-12-22] MEDS ORDERED: IVERMECTIN PO SCH (10:00)
[2020-12-22] MEDS: LIPITOR TAB 80 MG PO SCH (11:11)
[2020-12-22] MEDS: ACTOS PO SCH (11:11)
[2020-12-22] MEDS: GLUCOPHAGE XR 24-HR PO SCH ×2 (11:11→21:08)
[2020-12-22] MEDS: IVERMECTIN PO SCH (11:11)
[2020-12-22] MEDS: K-DUR TAB 20 MEQ PO SCH (11:11)
[2020-12-22] MEDS: ZITHROMAX INJ 500 MG VIAL 500 MG in NS 250 ML IV 250 ML IV SCH (11:12)
[2020-12-22] MEDS: VITAMIN A PO SCH (11:12)
[2020-12-22] MEDS: THIAMINE HCL INJ IVP SCH ×2 (11:12→21:01)
[2020-12-22] MEDS: PROTONIX INJ 40 MG VIAL IVP SCH (11:12)
[2020-12-22] MEDS: PEPCID TAB 40 MG PO SCH ×2 (11:12→21:08)
[2020-12-22] MEDS: VITAMIN D (1.25MG) PO SCH (11:13)
[2020-12-22] MEDS: ZINC SULFATE PO SCH ×2 (11:13→21:08)
[2020-12-22] MEDS: PERIACTIN TAB 4 MG PO PRN ×2 (11:13→21:07)
[2020-12-22] MEDS: ROBITUSSIN DM PO SCH ×4 (11:13→21:06)
[2020-12-22] MEDS: LOVENOX INJ 60 MG SYR SC SCH ×2 (11:13→21:06)
[2020-12-22] MEDS: ATIVAN INJ 2 MG VIAL IVP PRN (14:30)
[2020-12-22] MEDS: MELATONIN PO SCH (21:07)
[2020-12-22] MEDS: NS 1000 ML 1,000 ML IV SCH (22:56)
[2020-12-23] MEDS: SOLU-Medrol 125 MG VIAL IVP SCH ×4 (02:10→20:22)
[2020-12-23] MEDS: ASCORBIC ACID INJ MULTI-DOSE VIAL 1,500 MG in NS 100 ML IV 100 ML IV SCH ×4 (02:11→20:24)
[2020-12-23] MEDS: ZOSYN VIAL 3.375 GRAMS 3.375 G in NS 100 ML IV + SPIKE MINIBAG* 100 ML IV SCH (05:02)
[2020-12-23 05:29] LABS: BASOPHILS % (AUTO) 0.1 % (0.2-1.0); HEMOGLOBIN 12.5 g/dL (13.5-18.0); LYMPHOCYTES # (AUTO) 1.2 X10^3/uL (1.3-2.9); LYMPHOCYTES % (AUTO) 8.2 % (21.0-51.0); MEAN CORPUSCULAR HEMOGLOBIN 28.2 pg (27.0-34.0); MEAN CORPUSCULAR HGB CONC 33.7 g/dL (33.0-35.0); MEAN CORPUSCULAR VOLUME 83.7 fL (80.0-100.0); MEAN PLATELET VOLUME 7.4 fL (7.4-11.0); MONOCYTES # (AUTO) 0.3 x10^3/uL (0.3-0.8); MONOCYTES % (AUTO) 1.7 % (0.0-13.0); NEUTROPHILS # (AUTO) 13.3 x10^3/uL (2.2-4.8); PLATELET COUNT 394 X10^3/uL (150.0-450.0); RED BLOOD COUNT 4.43 X10^6/uL (4.7-6.0); RED CELL DISTRIBUTION WIDTH 14.3 % (11.6-16.5); WHITE BLOOD COUNT 14.8 X10^3/uL (3.6-10.0)
[2020-12-23 05:40] LABS: ALANINE AMINOTRANSFERASE 202 Units/L (12-78); ALBUMIN 2.5 g/dL (3.4-5.0); ALKALINE PHOSPHATASE 51 Units/L (46-116); ASPARTATE AMINO TRANSFERASE 86 Units/L (15-37); BLOOD UREA NITROGEN 23 mg/dL (7-18); CALCIUM 7.7 mg/dL (8.5-10.1); CARBON DIOXIDE 25.4 mmol/L (21-32); CHLORIDE 109 mmol/L (98-107); COR CA(FOR HYPOALB) 8.9 mg/dL (8.5-10.1); COR NA(FOR HYPERGLY) 145 mmol/L (136-145); CREATININE 0.93 mg/dL (0.70-1.30); SODIUM 143 mmol/L (136-145); TOTAL PROTEIN 5.8 g/dL (6.4-8.2); eGFR NON BLACK RACES > 60 (>60)
[2020-12-23] MEDS: GLUCOPHAGE XR 24-HR PO SCH ×2 (09:07→20:25)
[2020-12-23] MEDS: ZITHROMAX INJ 500 MG VIAL 500 MG in NS 250 ML IV 250 ML IV SCH (09:08)
[2020-12-23] MEDS: ROBITUSSIN DM PO SCH ×4 (09:08→20:24)
[2020-12-23] MEDS: K-DUR TAB 20 MEQ PO SCH (09:08)
[2020-12-23] MEDS: PROTONIX INJ 40 MG VIAL IVP SCH (09:08)
[2020-12-23] MEDS: PEPCID TAB 40 MG PO SCH ×2 (09:08→20:26)
[2020-12-23] MEDS: VITAMIN A PO SCH (09:08)
[2020-12-23] MEDS: VITAMIN D3 125 mcg (5,000 UNITS) PO SCH (09:09)
[2020-12-23] MEDS: IVERMECTIN PO SCH (09:09)
[2020-12-23] MEDS: LIPITOR TAB 80 MG PO SCH (09:09)
[2020-12-23] MEDS: ACTOS PO SCH (09:09)
[2020-12-23] MEDS: BROVANA IN SCH ×2 (09:35→21:00)
[2020-12-23] MEDS: PULMICORT NEB TX 0.5 MG NEB SCH ×4 (09:35→21:05)
[2020-12-23 09:57] VITALS: BMI 31.4
[2020-12-23] MEDS: THIAMINE HCL INJ IVP SCH ×2 (12:00→20:22)
[2020-12-23] MEDS: ZINC SULFATE PO SCH ×2 (12:00→20:26)
[2020-12-23] MEDS: LOVENOX INJ 60 MG SYR SC SCH ×2 (12:56→20:23)
[2020-12-23] MEDS: VIBRAMYCIN PO SCH ×2 (12:57→20:26)
[2020-12-23] MEDS: NS 1000 ML 1,000 ML IV SCH ×2 (15:00→22:03)
[2020-12-23] MEDS: PERIACTIN TAB 4 MG PO PRN (20:25)
[2020-12-23] MEDS: MELATONIN PO SCH (20:26)
[2020-12-23] MEDS: FLUVOXAMINE 50 MG PO SCH (22:04)
[2020-12-24] MEDS: SOLU-Medrol 125 MG VIAL IVP SCH ×4 (02:07→21:11)
[2020-12-24] MEDS: ASCORBIC ACID INJ MULTI-DOSE VIAL 1,500 MG in NS 100 ML IV 100 ML IV SCH ×4 (02:08→21:11)
[2020-12-24 04:24] LABS: ABG ALLEN TEST POS; ABG BASE EXCESS 1.5 mmol/L (-2.0-2.0); ABG HCO3 24.6 mmol/L (22-26)
[2020-12-24 05:29] LABS: BASOPHILS % (AUTO) 0.1 % (0.2-1.0); EOSINOPHILS % (AUTO) 0.1 % (0.9-2.9); HEMATOCRIT 37.4 % (42.0-54.0); HEMOGLOBIN 12.7 g/dL (13.5-18.0); LYMPHOCYTES # (AUTO) 1.4 X10^3/uL (1.3-2.9); LYMPHOCYTES % (AUTO) 8.9 % (21.0-51.0); MEAN CORPUSCULAR HEMOGLOBIN 28.3 pg (27.0-34.0); MEAN CORPUSCULAR VOLUME 83.1 fL (80.0-100.0); MEAN PLATELET VOLUME 7.3 fL (7.4-11.0); MONOCYTES # (AUTO) 0.2 x10^3/uL (0.3-0.8); MONOCYTES % (AUTO) 1.6 % (0.0-13.0); NEUTROPHILS # (AUTO) 13.6 x10^3/uL (2.2-4.8); NEUTROPHILS % (AUTO) 89.3 % (42.0-75.0); PLATELET COUNT 397 X10^3/uL (150.0-450.0); RED CELL DISTRIBUTION WIDTH 14.2 % (11.6-16.5); WHITE BLOOD COUNT 15.2 X10^3/uL (3.6-10.0)
[2020-12-24 05:32] LABS: ALANINE AMINOTRANSFERASE 156 Units/L (12-78); ALBUMIN 2.6 g/dL (3.4-5.0); ALKALINE PHOSPHATASE 50 Units/L (46-116); ASPARTATE AMINO TRANSFERASE 44 Units/L (15-37); BLOOD UREA NITROGEN 22 mg/dL (7-18); CALCIUM 7.9 mg/dL (8.5-10.1); CARBON DIOXIDE 25.5 mmol/L (21-32); CHLORIDE 108 mmol/L (98-107); COR NA(FOR HYPERGLY) 143 mmol/L (136-145); CREATININE 0.86 mg/dL (0.70-1.30); SODIUM 142 mmol/L (136-145); eGFR NON BLACK RACES > 60 (>60)
[2020-12-24] MEDS: PROTONIX INJ 40 MG VIAL IVP SCH (08:15)
[2020-12-24] MEDS: THIAMINE HCL INJ IVP SCH ×2 (08:16→21:14)
[2020-12-24] MEDS: VITAMIN D3 125 mcg (5,000 UNITS) PO SCH (08:16)
[2020-12-24] MEDS: ZINC SULFATE PO SCH ×2 (08:16→21:14)
[2020-12-24] MEDS: PEPCID TAB 40 MG PO SCH ×2 (08:16→21:13)
[2020-12-24] MEDS: GLUCOPHAGE XR 24-HR PO SCH ×2 (08:16→21:12)
[2020-12-24] MEDS: ROBITUSSIN DM PO SCH ×4 (08:16→21:14)
[2020-12-24] MEDS: K-DUR TAB 20 MEQ PO SCH (08:17)
[2020-12-24] MEDS: VITAMIN A PO SCH (08:17)
[2020-12-24] MEDS: ACTOS PO SCH (08:17)
[2020-12-24] MEDS: LIPITOR TAB 80 MG PO SCH (08:17)
[2020-12-24] MEDS: VIBRAMYCIN PO SCH ×2 (08:17→21:14)
[2020-12-24] MEDS: LOVENOX INJ 60 MG SYR SC SCH ×2 (08:24→21:12)
[2020-12-24] MEDS: IVERMECTIN PO SCH (08:25)
[2020-12-24] MEDS: PULMICORT NEB TX 0.5 MG NEB SCH ×2 (09:27→20:45)
[2020-12-24] MEDS: BROVANA IN SCH ×2 (09:27→20:45)
[2020-12-24] MEDS: FLUVOXAMINE 50 MG PO SCH (13:22)
[2020-12-24] MEDS: ATIVAN INJ 2 MG VIAL IVP PRN (17:00)
[2020-12-24] MEDS: MELATONIN PO SCH (21:12)
[2020-12-24] MEDS: NS 1000 ML 1,000 ML IV SCH (21:15)
[2020-12-25] MEDS: SOLU-Medrol 125 MG VIAL IVP SCH ×4 (03:56→20:43)
[2020-12-25] MEDS: ASCORBIC ACID INJ MULTI-DOSE VIAL 1,500 MG in NS 100 ML IV 100 ML IV SCH ×4 (03:57→20:41)
[2020-12-25] MEDS: PROTONIX INJ 40 MG VIAL IVP SCH (08:20)
[2020-12-25] MEDS: THIAMINE HCL INJ IVP SCH ×2 (08:21→20:40)
[2020-12-25] MEDS: LOVENOX INJ 60 MG SYR SC SCH ×2 (08:28→20:39)
[2020-12-25] MEDS: ACTOS PO SCH (08:31)
[2020-12-25] MEDS: ZINC SULFATE PO SCH ×3 (08:31→21:08)
[2020-12-25] MEDS: GLUCOPHAGE XR 24-HR PO SCH ×2 (08:32→20:38)
[2020-12-25] MEDS: VIBRAMYCIN PO SCH ×2 (08:32→20:39)
[2020-12-25] MEDS: VITAMIN D3 125 mcg (5,000 UNITS) PO SCH (08:32)
[2020-12-25] MEDS: VITAMIN A PO SCH (08:32)
[2020-12-25] MEDS: IVERMECTIN PO SCH (08:32)
[2020-12-25] MEDS: ROBITUSSIN DM PO SCH ×4 (08:33→20:38)
[2020-12-25] MEDS: PEPCID TAB 40 MG PO SCH ×2 (08:33→20:39)
[2020-12-25] MEDS: LIPITOR TAB 80 MG PO SCH (08:33)
[2020-12-25] MEDS: K-DUR TAB 20 MEQ PO SCH (08:34)
[2020-12-25] MEDS: BROVANA IN SCH ×2 (09:41→21:15)
[2020-12-25] MEDS: PULMICORT NEB TX 0.5 MG NEB SCH ×2 (09:47→21:25)
[2020-12-25] MEDS: FLUVOXAMINE MALEATE PO SCH ×2 (10:01→20:39)
[2020-12-25] MEDS: ATIVAN INJ 2 MG VIAL IVP PRN (18:10)
[2020-12-25] MEDS: MELATONIN PO SCH (20:39)
[2020-12-25] MEDS: NS 1000 ML 1,000 ML IV SCH ×2 (20:44→22:48)
[2020-12-26] MEDS: SOLU-Medrol 125 MG VIAL IVP SCH ×4 (02:43→20:16)
[2020-12-26] MEDS: ASCORBIC ACID INJ MULTI-DOSE VIAL 1,500 MG in NS 100 ML IV 100 ML IV SCH ×4 (02:44→20:17)
[2020-12-26 05:25] LABS: BASOPHILS % (AUTO) 0.2 % (0.2-1.0); HEMATOCRIT 37.6 % (42.0-54.0); HEMOGLOBIN 12.8 g/dL (13.5-18.0); LYMPHOCYTES % (AUTO) 5.5 % (21.0-51.0); MEAN CORPUSCULAR HEMOGLOBIN 28.3 pg (27.0-34.0); MEAN CORPUSCULAR HGB CONC 34.1 g/dL (33.0-35.0); MEAN CORPUSCULAR VOLUME 83.2 fL (80.0-100.0); MEAN PLATELET VOLUME 7.5 fL (7.4-11.0); MONOCYTES # (AUTO) 0.4 x10^3/uL (0.3-0.8); MONOCYTES % (AUTO) 2.5 % (0.0-13.0); NEUTROPHILS # (AUTO) 16.2 x10^3/uL (2.2-4.8); NEUTROPHILS % (AUTO) 91.8 % (42.0-75.0); PLATELET COUNT 368 X10^3/uL (150.0-450.0); RED BLOOD COUNT 4.52 X10^6/uL (4.7-6.0); RED CELL DISTRIBUTION WIDTH 13.7 % (11.6-16.5); WHITE BLOOD COUNT 17.6 X10^3/uL (3.6-10.0)
[2020-12-26 05:43] LABS: ALANINE AMINOTRANSFERASE 130 Units/L (12-78); ALBUMIN 2.6 g/dL (3.4-5.0); ALKALINE PHOSPHATASE 47 Units/L (46-116); ASPARTATE AMINO TRANSFERASE 40 Units/L (15-37); BLOOD UREA NITROGEN 27 mg/dL (7-18); CALCIUM 7.7 mg/dL (8.5-10.1); CARBON DIOXIDE 22.7 mmol/L (21-32); CHLORIDE 109 mmol/L (98-107); COR CA(FOR HYPOALB) 8.8 mg/dL (8.5-10.1); COR NA(FOR HYPERGLY) 142 mmol/L (136-145); CREATININE 0.87 mg/dL (0.70-1.30); SODIUM 141 mmol/L (136-145); TOTAL PROTEIN 5.8 g/dL (6.4-8.2); eGFR NON BLACK RACES > 60 (>60)
[2020-12-26 05:49] LABS: PLATELET MORPHOLOGY COMMENT NORMAL (NORMAL)
[2020-12-26] MEDS: ROBITUSSIN DM PO SCH ×4 (08:43→20:18)
[2020-12-26] MEDS: FLUVOXAMINE MALEATE PO SCH ×2 (08:43→20:19)
[2020-12-26] MEDS: PROTONIX INJ 40 MG VIAL IVP SCH (08:43)
[2020-12-26] MEDS: ACTOS PO SCH (08:43)
[2020-12-26] MEDS: GLUCOPHAGE XR 24-HR PO SCH ×2 (08:43→20:19)
[2020-12-26] MEDS: ZINC SULFATE PO SCH ×2 (08:44→21:58)
[2020-12-26] MEDS: VITAMIN D3 125 mcg (5,000 UNITS) PO SCH (08:44)
[2020-12-26] MEDS: THIAMINE HCL INJ IVP SCH ×2 (08:47→20:14)
[2020-12-26] MEDS: LOVENOX INJ 60 MG SYR SC SCH ×2 (08:49→20:17)
[2020-12-26] MEDS: LIPITOR TAB 80 MG PO SCH (08:50)
[2020-12-26] MEDS: PEPCID TAB 40 MG PO SCH ×2 (08:50→20:20)
[2020-12-26] MEDS: VITAMIN A PO SCH (08:50)
[2020-12-26] MEDS: K-DUR TAB 20 MEQ PO SCH (08:50)
[2020-12-26] MEDS: VIBRAMYCIN PO SCH ×2 (08:50→20:20)
[2020-12-26] MEDS: BROVANA IN SCH ×2 (09:49→21:07)
[2020-12-26] MEDS: PULMICORT NEB TX 0.5 MG NEB SCH ×2 (09:56→21:12)
--- NOTE | 2020-12-26 10:13 | RAD ---
HISTORYCOVID POSITIVE, HYPOXIA, FEVER, COUGH APPEYSTUDYCHEST, 1 VIEWCOMPARISONPortable chest December 22, 2020FINDINGSThe trachea is midline. The cardiac silhouette is unremarkable. The bilateral infiltrates right upper right lower and left midlung field show mild improvement compared to 22 December 2020 prior chest film. There is no pneumothorax or effusion. The bony thorax is unremarkable.IMPRESSIONMild improvement in the bilateral infiltrates compared to the film of December 22, 2020 consistent with mild improvement in the COVID-19 pneumonia.Electronically signed by: IVIS DUNN (Dec 26, 2020 10:11:20)
[2020-12-26] MEDS: MELATONIN PO SCH (20:19)
[2020-12-26] MEDS: PERIACTIN TAB 4 MG PO PRN (20:20)
[2020-12-26] MEDS: NS 1000 ML 1,000 ML IV SCH (21:55)
[2020-12-26] MEDS ORDERED: RESTORIL CAP 15 MG PO PRN (23:06)
[2020-12-27] MEDS: SOLU-Medrol 125 MG VIAL IVP SCH ×4 (01:35→20:49)
[2020-12-27] MEDS: ASCORBIC ACID INJ MULTI-DOSE VIAL 1,500 MG in NS 100 ML IV 100 ML IV SCH ×4 (02:50→20:56)
[2020-12-27 05:27] LABS: BASOPHILS % (AUTO) 0.1 % (0.2-1.0); HEMATOCRIT 38.2 % (42.0-54.0); LYMPHOCYTES % (AUTO) 6.5 % (21.0-51.0); MEAN CORPUSCULAR HEMOGLOBIN 28.4 pg (27.0-34.0); MEAN CORPUSCULAR HGB CONC 34.1 g/dL (33.0-35.0); MEAN CORPUSCULAR VOLUME 83.1 fL (80.0-100.0); MEAN PLATELET VOLUME 7.7 fL (7.4-11.0); MONOCYTES # (AUTO) 0.3 x10^3/uL (0.3-0.8); MONOCYTES % (AUTO) 2.1 % (0.0-13.0); NEUTROPHILS # (AUTO) 14.4 x10^3/uL (2.2-4.8); NEUTROPHILS % (AUTO) 91.3 % (42.0-75.0); PLATELET COUNT 310 X10^3/uL (150.0-450.0); RED BLOOD COUNT 4.59 X10^6/uL (4.7-6.0); RED CELL DISTRIBUTION WIDTH 13.5 % (11.6-16.5); WHITE BLOOD COUNT 15.7 X10^3/uL (3.6-10.0)
[2020-12-27] MEDS: NS 1000 ML 1,000 ML IV SCH ×2 (05:28→20:55)
[2020-12-27 05:48] LABS: PLATELET MORPHOLOGY COMMENT NORMAL (NORMAL)
[2020-12-27 05:50] LABS: ALANINE AMINOTRANSFERASE 125 Units/L (12-78); ALBUMIN 2.7 g/dL (3.4-5.0); ALKALINE PHOSPHATASE 49 Units/L (46-116); ASPARTATE AMINO TRANSFERASE 36 Units/L (15-37); BLOOD UREA NITROGEN 24 mg/dL (7-18); CARBON DIOXIDE 24.5 mmol/L (21-32); CHLORIDE 108 mmol/L (98-107); COR NA(FOR HYPERGLY) 141 mmol/L (136-145); CREATININE 0.89 mg/dL (0.70-1.30); SODIUM 140 mmol/L (136-145); TOTAL PROTEIN 5.9 g/dL (6.4-8.2); eGFR NON BLACK RACES > 60 (>60)
--- NOTE | 2020-12-27 06:26 | RAD ---
HISTORYCOVID PNEUMONIASTUDYCHEST, 1 [id number]/04/2021TECHNIQUEAP view of the chestFINDINGSCardiac and mediastinal contours are within normal limits. Similar appearance of multifocal airspace disease bilaterally. No definite pleural effusion or pneumothorax.IMPRESSIONNo significant change since 1 day prior.Electronically signed by: Ronald Hernandez (Dec 27, 2020 06:24:55)
[2020-12-27] MEDS: ACTOS PO SCH (09:51)
[2020-12-27] MEDS: FLUVOXAMINE MALEATE PO SCH ×2 (09:51→20:52)
[2020-12-27] MEDS: GLUCOPHAGE XR 24-HR PO SCH ×2 (09:52→20:52)
[2020-12-27] MEDS: K-DUR TAB 20 MEQ PO SCH (09:52)
[2020-12-27] MEDS: PROTONIX INJ 40 MG VIAL IVP SCH (09:52)
[2020-12-27] MEDS: PEPCID TAB 40 MG PO SCH ×2 (09:52→20:53)
[2020-12-27] MEDS: LIPITOR TAB 80 MG PO SCH (09:52)
[2020-12-27] MEDS: VIBRAMYCIN PO SCH ×2 (09:53→20:53)
[2020-12-27] MEDS: VITAMIN D3 125 mcg (5,000 UNITS) PO SCH (09:53)
[2020-12-27] MEDS: ZINC SULFATE PO SCH ×2 (09:53→20:53)
[2020-12-27] MEDS: THIAMINE HCL INJ IVP SCH ×2 (09:53→20:48)
[2020-12-27] MEDS: ROBITUSSIN DM PO SCH ×4 (09:53→20:51)
[2020-12-27] MEDS: VITAMIN A PO SCH (09:54)
[2020-12-27] MEDS: LOVENOX INJ 60 MG SYR SC SCH ×2 (09:54→20:50)
[2020-12-27] MEDS: PULMICORT NEB TX 0.5 MG NEB SCH ×2 (10:00→20:05)
[2020-12-27] MEDS: BROVANA IN SCH ×2 (10:00→20:05)
[2020-12-27] MEDS: MELATONIN PO SCH (20:52)
[2020-12-27] MEDS: PERIACTIN TAB 4 MG PO PRN (20:53)
[2020-12-28] MEDS: ASCORBIC ACID INJ MULTI-DOSE VIAL 1,500 MG in NS 100 ML IV 100 ML IV SCH ×4 (02:13→21:03)
[2020-12-28] MEDS: SOLU-Medrol 125 MG VIAL IVP SCH ×4 (02:13→20:59)
[2020-12-28 05:26] LABS: BASOPHILS % (AUTO) 0 % (0.2-1.0); HEMATOCRIT 38.6 % (42.0-54.0); MEAN CORPUSCULAR HGB CONC 33.8 g/dL (33.0-35.0); MEAN CORPUSCULAR VOLUME 82.8 fL (80.0-100.0); MEAN PLATELET VOLUME 8.1 fL (7.4-11.0); MONOCYTES # (AUTO) 0.4 x10^3/uL (0.3-0.8); MONOCYTES % (AUTO) 2.2 % (0.0-13.0); NEUTROPHILS # (AUTO) 15.6 x10^3/uL (2.2-4.8); NEUTROPHILS % (AUTO) 91.8 % (42.0-75.0); PLATELET COUNT 277 X10^3/uL (150.0-450.0); RED BLOOD COUNT 4.66 X10^6/uL (4.7-6.0); RED CELL DISTRIBUTION WIDTH 14.1 % (11.6-16.5)
[2020-12-28 05:46] LABS: ALANINE AMINOTRANSFERASE 115 Units/L (12-78); ALBUMIN 2.6 g/dL (3.4-5.0); ALKALINE PHOSPHATASE 50 Units/L (46-116); ASPARTATE AMINO TRANSFERASE 28 Units/L (15-37); BLOOD UREA NITROGEN 25 mg/dL (7-18); CALCIUM 7.9 mg/dL (8.5-10.1); CHLORIDE 108 mmol/L (98-107); COR NA(FOR HYPERGLY) 142 mmol/L (136-145); CREATININE 0.86 mg/dL (0.70-1.30); SODIUM 141 mmol/L (136-145); TOTAL PROTEIN 5.7 g/dL (6.4-8.2); eGFR NON BLACK RACES > 60 (>60)
[2020-12-28 06:21] LABS: PLATELET MORPHOLOGY COMMENT NORMAL (NORMAL)
--- NOTE | 2020-12-28 06:41 | RAD ---
HISTORYCOVID PNEUMONIASTUDYCHEST, 1 VIEWCOMPARISONOne day prior.TECHNIQUEAP view of the chestFINDINGSCardiac and mediastinal contours are within normal limits. No significant change in bilateral airspace and interstitial opacities. No definite pleural effusion or pneumothorax.IMPRESSIONNo significant change.Electronically signed by: Ronald Hernandez (Dec 28, 2020 06:39:01)
[2020-12-28] MEDS: BROVANA IN SCH ×2 (10:00→21:00)
[2020-12-28] MEDS: PULMICORT NEB TX 0.5 MG NEB SCH ×2 (10:00→21:00)
[2020-12-28] MEDS: LOVENOX INJ 60 MG SYR SC SCH ×2 (10:13→21:04)
[2020-12-28] MEDS: ROBITUSSIN DM PO SCH ×4 (10:13→21:05)
[2020-12-28] MEDS: PROTONIX INJ 40 MG VIAL IVP SCH (10:13)
[2020-12-28] MEDS: THIAMINE HCL INJ IVP SCH ×2 (10:13→21:01)
[2020-12-28] MEDS: PEPCID TAB 40 MG PO SCH ×2 (10:14→21:07)
[2020-12-28] MEDS: ZINC SULFATE PO SCH ×2 (10:15→21:07)
[2020-12-28] MEDS: VIBRAMYCIN PO SCH ×2 (10:15→21:07)
[2020-12-28] MEDS: K-DUR TAB 20 MEQ PO SCH (10:15)
[2020-12-28] MEDS: ACTOS PO SCH (10:16)
[2020-12-28] MEDS: FLUVOXAMINE MALEATE PO SCH ×2 (10:16→21:06)
[2020-12-28] MEDS: LIPITOR TAB 80 MG PO SCH (10:17)
[2020-12-28] MEDS: GLUCOPHAGE XR 24-HR PO SCH ×2 (10:17→21:06)
[2020-12-28] MEDS: VITAMIN D3 125 mcg (5,000 UNITS) PO SCH (10:17)
[2020-12-28] MEDS: VITAMIN A PO SCH (10:19)
[2020-12-28] MEDS: NS 1000 ML 1,000 ML IV SCH (20:57)
[2020-12-28] MEDS: MELATONIN PO SCH (21:06)
[2020-12-28] MEDS: PERIACTIN TAB 4 MG PO PRN (21:07)
[2020-12-29] MEDS: ASCORBIC ACID INJ MULTI-DOSE VIAL 1,500 MG in NS 100 ML IV 100 ML IV SCH ×4 (03:45→21:00)
[2020-12-29] MEDS: SOLU-Medrol 125 MG VIAL IVP SCH ×4 (03:45→21:00)
[2020-12-29 05:11] LABS: BASOPHILS % (AUTO) 0.2 % (0.2-1.0); HEMATOCRIT 39.2 % (42.0-54.0); HEMOGLOBIN 13.2 g/dL (13.5-18.0); LYMPHOCYTES # (AUTO) 0.9 X10^3/uL (1.3-2.9); LYMPHOCYTES % (AUTO) 5.6 % (21.0-51.0); MEAN CORPUSCULAR HEMOGLOBIN 28.1 pg (27.0-34.0); MEAN CORPUSCULAR HGB CONC 33.5 g/dL (33.0-35.0); MEAN CORPUSCULAR VOLUME 83.7 fL (80.0-100.0); MEAN PLATELET VOLUME 8.4 fL (7.4-11.0); MONOCYTES # (AUTO) 0.4 x10^3/uL (0.3-0.8); MONOCYTES % (AUTO) 2.3 % (0.0-13.0); NEUTROPHILS % (AUTO) 91.9 % (42.0-75.0); PLATELET COUNT 244 X10^3/uL (150.0-450.0); RED BLOOD COUNT 4.69 X10^6/uL (4.7-6.0); RED CELL DISTRIBUTION WIDTH 13.7 % (11.6-16.5); WHITE BLOOD COUNT 16.3 X10^3/uL (3.6-10.0)
[2020-12-29 05:23] LABS: ALANINE AMINOTRANSFERASE 119 Units/L (12-78); ALBUMIN 2.6 g/dL (3.4-5.0); ALKALINE PHOSPHATASE 50 Units/L (46-116); ASPARTATE AMINO TRANSFERASE 32 Units/L (15-37); BLOOD UREA NITROGEN 27 mg/dL (7-18); CARBON DIOXIDE 25.5 mmol/L (21-32); CHLORIDE 107 mmol/L (98-107); COR CA(FOR HYPOALB) 9.1 mg/dL (8.5-10.1); COR NA(FOR HYPERGLY) 142 mmol/L (136-145); CREATININE 0.86 mg/dL (0.70-1.30); SODIUM 141 mmol/L (136-145); TOTAL PROTEIN 5.7 g/dL (6.4-8.2); eGFR NON BLACK RACES > 60 (>60)
[2020-12-29 06:03] LABS: PLATELET MORPHOLOGY COMMENT NORMAL (NORMAL)
[2020-12-29] MEDS: BROVANA IN SCH ×2 (08:57→20:05)
[2020-12-29] MEDS: FLUVOXAMINE MALEATE PO SCH ×2 (10:03→21:00)
[2020-12-29] MEDS: GLUCOPHAGE XR 24-HR PO SCH ×2 (10:04→21:00)
[2020-12-29] MEDS: ZINC SULFATE PO SCH ×2 (10:04→22:32)
[2020-12-29] MEDS: PROTONIX INJ 40 MG VIAL IVP SCH (10:05)
[2020-12-29] MEDS: LIPITOR TAB 80 MG PO SCH (10:06)
[2020-12-29] MEDS: VITAMIN D3 125 mcg (5,000 UNITS) PO SCH (10:06)
[2020-12-29] MEDS: PEPCID TAB 40 MG PO SCH ×2 (10:07→21:00)
[2020-12-29] MEDS: K-DUR TAB 20 MEQ PO SCH (10:07)
[2020-12-29] MEDS: ACTOS PO SCH (10:08)
[2020-12-29] MEDS: ROBITUSSIN DM PO SCH ×4 (10:08→21:00)
[2020-12-29] MEDS: THIAMINE HCL INJ IVP SCH ×2 (10:08→21:00)
[2020-12-29] MEDS: VITAMIN A PO SCH (10:12)
[2020-12-29] MEDS: ELIQUIS PO SCH ×2 (10:13→21:00)
[2020-12-29] MEDS ORDERED: SOLU-Medrol 40 MG VIAL ONE (10:17)
[2020-12-29] MEDS: MELATONIN PO SCH (21:00)
[2020-12-29] MEDS: NS 1000 ML 1,000 ML IV SCH (22:29)
[2020-12-30] MEDS: ASCORBIC ACID INJ MULTI-DOSE VIAL 1,500 MG in NS 100 ML IV 100 ML IV SCH ×4 (03:00→21:00)
[2020-12-30 05:30] LABS: BASOPHILS % (AUTO) 0.1 % (0.2-1.0); HEMATOCRIT 37.9 % (42.0-54.0); HEMOGLOBIN 12.8 g/dL (13.5-18.0); LYMPHOCYTES # (AUTO) 1.3 X10^3/uL (1.3-2.9); LYMPHOCYTES % (AUTO) 4.6 % (21.0-51.0); MEAN CORPUSCULAR HEMOGLOBIN 28.3 pg (27.0-34.0); MEAN CORPUSCULAR HGB CONC 33.7 g/dL (33.0-35.0); MEAN PLATELET VOLUME 8.6 fL (7.4-11.0); MONOCYTES # (AUTO) 0.7 x10^3/uL (0.3-0.8); MONOCYTES % (AUTO) 2.4 % (0.0-13.0); NEUTROPHILS % (AUTO) 92.9 % (42.0-75.0); PLATELET COUNT 183 X10^3/uL (150.0-450.0); RED BLOOD COUNT 4.51 X10^6/uL (4.7-6.0)
[2020-12-30 05:45] LABS: ALANINE AMINOTRANSFERASE 108 Units/L (12-78); ALBUMIN 2.5 g/dL (3.4-5.0); ALKALINE PHOSPHATASE 62 Units/L (46-116); ASPARTATE AMINO TRANSFERASE 34 Units/L (15-37); BLOOD UREA NITROGEN 23 mg/dL (7-18); CALCIUM 7.8 mg/dL (8.5-10.1); CARBON DIOXIDE 26.9 mmol/L (21-32); CHLORIDE 108 mmol/L (98-107); CREATININE 0.91 mg/dL (0.70-1.30); SODIUM 143 mmol/L (136-145); TOTAL PROTEIN 5.6 g/dL (6.4-8.2); eGFR NON BLACK RACES > 60 (>60)
[2020-12-30] MEDS: SOLU-Medrol 125 MG VIAL IVP SCH ×3 (06:17→21:00)
[2020-12-30 06:30] LABS: PLATELET MORPHOLOGY COMMENT NORMAL (NORMAL)
[2020-12-30] MEDS: ACTOS PO SCH (09:18)
[2020-12-30] MEDS: VITAMIN D3 125 mcg (5,000 UNITS) PO SCH (09:18)
[2020-12-30] MEDS: FLUVOXAMINE MALEATE PO SCH ×2 (09:19→21:00)
[2020-12-30] MEDS: K-DUR TAB 20 MEQ PO SCH (09:19)
[2020-12-30] MEDS: GLUCOPHAGE XR 24-HR PO SCH ×2 (09:19→21:00)
[2020-12-30] MEDS: ELIQUIS PO SCH ×2 (09:19→21:00)
[2020-12-30] MEDS: THIAMINE HCL INJ IVP SCH ×2 (09:20→21:00)
[2020-12-30] MEDS: PROTONIX INJ 40 MG VIAL IVP SCH (09:20)
[2020-12-30] MEDS: LIPITOR TAB 80 MG PO SCH (09:20)
[2020-12-30] MEDS: PEPCID TAB 40 MG PO SCH ×2 (09:20→21:00)
[2020-12-30] MEDS: ROBITUSSIN DM PO SCH ×4 (09:20→21:00)
[2020-12-30] MEDS: VITAMIN A PO SCH (09:21)
[2020-12-30] MEDS: ZINC SULFATE PO SCH ×2 (09:21→21:00)
[2020-12-30] MEDS: BROVANA IN SCH ×2 (10:27→22:19)
[2020-12-30] MEDS: AVELOX IV 400 MG/250 ML BAG 400 MG/250 ML PIGGYBACK IV SCH (12:00)
[2020-12-30] MEDS: DIFLUCAN PO SCH (12:00)
[2020-12-30] MEDS: MELATONIN PO SCH (21:00)
[2020-12-30] MEDS: NS 1000 ML 1,000 ML IV SCH (23:45)
[2020-12-31] MEDS: ASCORBIC ACID INJ MULTI-DOSE VIAL 1,500 MG in NS 100 ML IV 100 ML IV SCH ×2 (04:00→08:43)
[2020-12-31] MEDS: SOLU-Medrol 125 MG VIAL IVP SCH (06:00)
[2020-12-31 06:25] LABS: BASOPHILS % (AUTO) 0.2 % (0.2-1.0); HEMATOCRIT 38.4 % (42.0-54.0); HEMOGLOBIN 13.2 g/dL (13.5-18.0); LYMPHOCYTES # (AUTO) 0.8 X10^3/uL (1.3-2.9); LYMPHOCYTES % (AUTO) 4.8 % (21.0-51.0); MEAN CORPUSCULAR HEMOGLOBIN 28.8 pg (27.0-34.0); MEAN CORPUSCULAR HGB CONC 34.5 g/dL (33.0-35.0); MEAN CORPUSCULAR VOLUME 83.4 fL (80.0-100.0); MEAN PLATELET VOLUME 8.8 fL (7.4-11.0); MONOCYTES # (AUTO) 0.4 x10^3/uL (0.3-0.8); MONOCYTES % (AUTO) 2.8 % (0.0-13.0); NEUTROPHILS # (AUTO) 14.9 x10^3/uL (2.2-4.8); NEUTROPHILS % (AUTO) 92.2 % (42.0-75.0); PLATELET COUNT 176 X10^3/uL (150.0-450.0); RED CELL DISTRIBUTION WIDTH 14.2 % (11.6-16.5); WHITE BLOOD COUNT 16.2 X10^3/uL (3.6-10.0)
[2020-12-31 06:50] LABS: ALANINE AMINOTRANSFERASE 122 Units/L (12-78); ALBUMIN 2.7 g/dL (3.4-5.0); ALKALINE PHOSPHATASE 53 Units/L (46-116); ASPARTATE AMINO TRANSFERASE 47 Units/L (15-37); BLOOD UREA NITROGEN 22 mg/dL (7-18); CARBON DIOXIDE 25.9 mmol/L (21-32); CHLORIDE 107 mmol/L (98-107); COR NA(FOR HYPERGLY) 143 mmol/L (136-145); CREATININE 0.81 mg/dL (0.70-1.30); SODIUM 142 mmol/L (136-145); TOTAL PROTEIN 6.1 g/dL (6.4-8.2); eGFR NON BLACK RACES > 60 (>60)
[2020-12-31 08:03] LABS: PLATELET MORPHOLOGY COMMENT NORMAL (NORMAL)
[2020-12-31] MEDS: ROBITUSSIN DM PO SCH ×4 (08:40→22:00)
[2020-12-31] MEDS: PEPCID TAB 40 MG PO SCH ×2 (08:40→22:00)
[2020-12-31] MEDS: VITAMIN A PO SCH (08:40)
[2020-12-31] MEDS: ACTOS PO SCH (08:40)
[2020-12-31] MEDS: GLUCOPHAGE XR 24-HR PO SCH ×2 (08:41→22:00)
[2020-12-31] MEDS: VITAMIN D3 125 mcg (5,000 UNITS) PO SCH (08:41)
[2020-12-31] MEDS: DIFLUCAN PO SCH (08:41)
[2020-12-31] MEDS: K-DUR TAB 20 MEQ PO SCH (08:42)
[2020-12-31] MEDS: FLUVOXAMINE MALEATE PO SCH ×2 (08:42→22:00)
[2020-12-31] MEDS: LIPITOR TAB 80 MG PO SCH (08:42)
[2020-12-31] MEDS: ELIQUIS PO SCH ×2 (08:42→22:00)
[2020-12-31] MEDS: ZINC SULFATE PO SCH ×3 (08:43→22:00)
[2020-12-31] MEDS: THIAMINE HCL INJ IVP SCH ×2 (08:43→22:00)
[2020-12-31] MEDS: PROTONIX INJ 40 MG VIAL IVP SCH (08:43)
[2020-12-31] MEDS: VITAMIN C PO SCH (08:50)
[2020-12-31] MEDS: PREDNISONE TAB 20 MG PO SCH (08:50)
[2020-12-31] MEDS: AVELOX IV 400 MG/250 ML BAG 400 MG/250 ML PIGGYBACK IV SCH (11:41)
[2020-12-31] MEDS: MELATONIN PO SCH (22:00)
[2021-01-01] MEDS: ZINC SULFATE PO SCH ×3 (00:31→22:44)
[2021-01-01 05:10] LABS: BASOPHILS # (AUTO) 0.1 X10^3/uL (0.0-0.1); BASOPHILS % (AUTO) 0.3 % (0.2-1.0); EOSINOPHILS % (AUTO) 0.1 % (0.9-2.9); HEMOGLOBIN 13.3 g/dL (13.5-18.0); LYMPHOCYTES # (AUTO) 2.1 X10^3/uL (1.3-2.9); LYMPHOCYTES % (AUTO) 11.8 % (21.0-51.0); MEAN CORPUSCULAR HEMOGLOBIN 28.5 pg (27.0-34.0); MEAN CORPUSCULAR HGB CONC 34.2 g/dL (33.0-35.0); MEAN CORPUSCULAR VOLUME 83.5 fL (80.0-100.0); MEAN PLATELET VOLUME 8.9 fL (7.4-11.0); MONOCYTES # (AUTO) 0.6 x10^3/uL (0.3-0.8); MONOCYTES % (AUTO) 3.3 % (0.0-13.0); NEUTROPHILS # (AUTO) 15.3 x10^3/uL (2.2-4.8); NEUTROPHILS % (AUTO) 84.5 % (42.0-75.0); PLATELET COUNT 187 X10^3/uL (150.0-450.0); RED BLOOD COUNT 4.67 X10^6/uL (4.7-6.0); RED CELL DISTRIBUTION WIDTH 13.9 % (11.6-16.5); WHITE BLOOD COUNT 18.1 X10^3/uL (3.6-10.0)
[2021-01-01 05:34] LABS: ALANINE AMINOTRANSFERASE 106 Units/L (12-78); ALBUMIN 2.7 g/dL (3.4-5.0); ALKALINE PHOSPHATASE 49 Units/L (46-116); ASPARTATE AMINO TRANSFERASE 33 Units/L (15-37); BLOOD UREA NITROGEN 31 mg/dL (7-18); CALCIUM 7.9 mg/dL (8.5-10.1); CARBON DIOXIDE 24.7 mmol/L (21-32); CHLORIDE 109 mmol/L (98-107); COR CA(FOR HYPOALB) 8.9 mg/dL (8.5-10.1); CREATININE 0.87 mg/dL (0.70-1.30); SODIUM 142 mmol/L (136-145); TOTAL PROTEIN 5.9 g/dL (6.4-8.2); eGFR NON BLACK RACES > 60 (>60)
[2021-01-01] MEDS: NS 1000 ML 1,000 ML IV SCH ×3 (08:35→21:00)
[2021-01-01] MEDS: VITAMIN D3 125 mcg (5,000 UNITS) PO SCH (08:35)
[2021-01-01] MEDS: ACTOS PO SCH (08:35)
[2021-01-01] MEDS: ROBITUSSIN DM PO SCH ×4 (08:37→21:00)
[2021-01-01] MEDS: GLUCOPHAGE XR 24-HR PO SCH ×2 (08:37→21:00)
[2021-01-01] MEDS: VITAMIN C PO SCH (08:37)
[2021-01-01] MEDS: PREDNISONE TAB 20 MG PO SCH (08:38)
[2021-01-01] MEDS: VITAMIN A PO SCH (08:38)
[2021-01-01] MEDS: PEPCID TAB 40 MG PO SCH ×2 (08:38→21:00)
[2021-01-01] MEDS: K-DUR TAB 20 MEQ PO SCH (08:38)
[2021-01-01] MEDS: DIFLUCAN PO SCH (08:39)
[2021-01-01] MEDS: ELIQUIS PO SCH ×2 (08:39→21:00)
[2021-01-01] MEDS: THIAMINE HCL INJ IVP SCH ×2 (08:39→21:00)
[2021-01-01] MEDS: PROTONIX TAB 40 MG PO SCH (08:43)
[2021-01-01] MEDS: AVELOX IV 400 MG/250 ML BAG 400 MG/250 ML PIGGYBACK IV SCH (10:14)
[2021-01-01] MEDS ORDERED: FLUVOXAMINE MALEATE PO SCH (21:00)
[2021-01-01] MEDS: MELATONIN PO SCH (21:00)
[2021-01-02] MEDS: NS 1000 ML 1,000 ML IV SCH (05:19)
[2021-01-02 06:19] LABS: BASOPHILS % (AUTO) 0.1 % (0.2-1.0); EOSINOPHILS # (AUTO) 0.1 x10^3/uL (0.0-0.2); EOSINOPHILS % (AUTO) 0.6 % (0.9-2.9); HEMATOCRIT 36.8 % (42.0-54.0); HEMOGLOBIN 12.6 g/dL (13.5-18.0); LYMPHOCYTES # (AUTO) 2.2 X10^3/uL (1.3-2.9); LYMPHOCYTES % (AUTO) 19.8 % (21.0-51.0); MEAN CORPUSCULAR HEMOGLOBIN 28.8 pg (27.0-34.0); MEAN CORPUSCULAR HGB CONC 34.3 g/dL (33.0-35.0); MEAN PLATELET VOLUME 8.8 fL (7.4-11.0); MONOCYTES # (AUTO) 0.5 x10^3/uL (0.3-0.8); MONOCYTES % (AUTO) 4.6 % (0.0-13.0); NEUTROPHILS # (AUTO) 8.4 x10^3/uL (2.2-4.8); NEUTROPHILS % (AUTO) 74.9 % (42.0-75.0); PLATELET COUNT 155 X10^3/uL (150.0-450.0); RED BLOOD COUNT 4.38 X10^6/uL (4.7-6.0); WHITE BLOOD COUNT 11.3 X10^3/uL (3.6-10.0)
[2021-01-02 06:42] LABS: ALANINE AMINOTRANSFERASE 86 Units/L (12-78); ALBUMIN 2.4 g/dL (3.4-5.0); ALKALINE PHOSPHATASE 48 Units/L (46-116); ASPARTATE AMINO TRANSFERASE 28 Units/L (15-37); BLOOD UREA NITROGEN 21 mg/dL (7-18); CALCIUM 7.3 mg/dL (8.5-10.1); CARBON DIOXIDE 23.8 mmol/L (21-32); CHLORIDE 110 mmol/L (98-107); COR CA(FOR HYPOALB) 8.6 mg/dL (8.5-10.1); CREATININE 0.79 mg/dL (0.70-1.30); SODIUM 142 mmol/L (136-145); TOTAL PROTEIN 5.2 g/dL (6.4-8.2); eGFR NON BLACK RACES > 60 (>60)
[2021-01-02] MEDS: ACTOS PO SCH (08:32)
[2021-01-02] MEDS: DIFLUCAN PO SCH (08:33)
[2021-01-02] MEDS: PEPCID TAB 40 MG PO SCH (08:33)
[2021-01-02] MEDS: K-DUR TAB 20 MEQ PO SCH (08:33)
[2021-01-02] MEDS: GLUCOPHAGE XR 24-HR PO SCH (08:33)
[2021-01-02] MEDS: ELIQUIS PO SCH (08:33)
[2021-01-02] MEDS: ROBITUSSIN DM PO SCH (08:34)
[2021-01-02] MEDS: PREDNISONE TAB 20 MG PO SCH (08:34)
[2021-01-02] MEDS: PROTONIX TAB 40 MG PO SCH (08:34)
[2021-01-02] MEDS: THIAMINE HCL INJ IVP SCH (08:34)
[2021-01-02] MEDS: VITAMIN A PO SCH (08:34)
[2021-01-02] MEDS: VITAMIN D3 125 mcg (5,000 UNITS) PO SCH (08:34)
[2021-01-02] MEDS: AVELOX IV 400 MG/250 ML BAG 400 MG/250 ML PIGGYBACK IV SCH (08:35)
[2021-01-02] MEDS: ZINC SULFATE PO SCH (08:35)
[2021-01-02 08:36] VITALS: BP 101/58
== END 2021-01-02 10:20 | disposition home or self-care (01) | DRG 177 ==
LOC: ER 20:28 → OBS 20:28 → ICU 12-18 17:05
PROVIDERS: ADMIT Internal Medicine; ATTEND Obstetrics & Gynecology Obstetrics
DX: R09.02 Hypoxemia; U07.1 COVID-19; J12.82 Pneumonia due to coronavirus disease 2019; R26.9 Unspecified abnormalities of gait and mobility